=== PATIENT | female | born 1995 | race Caucasian/White ===

== ENCOUNTER 2019-05-30 16:46 | Emergency (ER) | payer OTHER ==
[2019-05-30] MEDS ORDERED: predniSONE 20 MG TABLET PO ONE (18:18)
[2019-05-30] MEDS ORDERED: BENZONATATE 100 MG CAPSULE PO ONE (18:18)
[2019-06-06 13:33] LABS: APPEARANCE,URINE CLEAR (CLEAR); COLOR,URINE YELLOW (YELLOW); OCCULT BLOOD,URINE NEGATIVE (NEGATIVE); URINE HCG NEGATIVE (NEGATIVE); UROBILINOGEN URINE 0.2 Eu (0.2-1.0)
[2019-06-06 13:34] LABS: BASOPHILS % 0.6 % (0.0-1.5); NEUTROPHILS # 3.4 # k/uL (1.4-7.7)
--- NOTE | 2019-06-24 10:01 | Diagnostic Imaging Report ---
BREN DUDLEY [facility] [address] [facility].[address] [id number] Report Submission Date: May 30, 2019 6:02:16 PM CDT Patient Study Name: JARAD BRAGA Date: May 30, 2019 5:28:59 PM CDT Modality Type: DX Gender: F Description: CHEST 2VIEW : 89 Institution: [facility] Physician: BREN DUDLEY 2 views of the chest History: COUGH X 1 MONTH PATIENT STATES COUGH/SOA/PAIN AFTER COUGH WITH HX OF SMOKING (Hx) / Note time : 05/30/2019 5:56:37 PM User : Mariana Bruno COUGH X 1 MONTH PATIENT STATES COUGH/SOA/PAIN AFTER COUGH WITH HX OF SMOKING No comparison studies Heart is normal in size. There is no focal consolidation, pleural effusion or pneumothorax. No acute osseous pathology Impression: No focal consolidation or pleural effusion. Electronically signed on May 30, 2019 6:02:16 PM CDT by: Cristela SNELL
== END 2019-05-30 18:22 | disposition home or self-care (01) ==
LOC: ED 16:46
DX: R05 Cough (principal)
CPT/HCPCS: 71046; 81002; 81025; 85025; 99283; 99284; A9270; 71020